=== PATIENT | male | born 1965 | race Caucasian/White ===

== ENCOUNTER 2019-03-06 22:04 | Emergency (ER) | payer MEDICAID ==
[~2019-03-06] VITALS: Ht 180.3 cm; Wt 83.1 kg
[2019-03-06 22:35] VITALS: Ht 180.3 cm; Wt 83.1 kg
[2019-03-07 01:18] VITALS: BP 112/67
== END 2019-03-07 01:18 | disposition home or self-care (01) ==
LOC: ED 22:04
DX: L50.9 Urticaria, unspecified (principal); E11.9 Type 2 diabetes mellitus without complications
CPT/HCPCS: J2930